=== PATIENT | female | born 1935 | race Caucasian/White ===

== ENCOUNTER → 2016-09-19 | Outpatient (CLI) | payer OTHER, BC ==
[~2016-09-19] MED LIST: ALDACTONE50 MG PO; APAP500 PO; CRANBERRY450 M2 PO; DIURETIC SOFTGE50 MG; GABAPENTIN100 MG; GLUCOSAMIN-CHO1 EACH PO; NEURONTIN 300300 M1; PROTONIX40 M1 PO; PULMICORT FLE180 MCG INH; STOOL SOFTENER100 MG PO; TRAMADOL 50 MG50 MG PO; TRAZODONE HCL100 MG PO; ULTRACET TABLE1 EACH PO
== END ==
LOC: MRI 03:02
DX: M47.897 Other spondylosis, lumbosacral region (principal); M54.16 Radiculopathy, lumbar region; M54.5 Low back pain